=== PATIENT | female | born 1990 | race Two or more races ===

== ENCOUNTER 2024-07-11 17:58 | Emergency (ER) | payer MEDICAID, SELFPAY ==
[2024-07-11 18:13] VITALS: BP 126/85; PULSE 85; RESP 19; TEMP 36.5; O2SAT 100
[2024-07-11 18:33] VITALS: BMI 26.2
--- NOTE | 2024-07-11 18:38 | XR_ITS ---
Examination: OB Transvaginal ultrasound of the pelvis, complete Technique: Transvaginal sonographic images pelvis performed using overton scale imaging Exam date and time: July 11, 2024 1856 hrs. Indications: Vaginal bleeding beginning today, pelvic cramping beginning 6 days ago Findings: Uterus 9.4 x 5.0 x 7.0 cm pole 0.5 cm corresponds to 6 weeks 1 day gestational age No cardiac motion Right ovary 4.0 x 1.7 x 1.9 cm arterial flow small follicles Left ovary 3.4 x 2.0 x 2.6 cm arterial flow 15 mm cyst Impression: Intrauterine gestation corresponding to 6 weeks 1 day gestational age, no cardiac activity Recommend short-term follow-up transvaginal pelvic sonography to confirm viability.
--- NOTE | 2024-07-11 18:39 | PD.EDRME ---
Rapid Medical Screening Exam COUNTS INCLUDE 234 BEDS AT THE [facility] Arrival date/time: 07/11/24 17:58 33F at approximately 7 weeks and with no significant PMH presents to ED with several days of worsening vaginal bleeding/spotting and pelvic pain. Patient denies dysuria. Chief Complaint: Vaginal Bleeding Time Seen by Provider: 07/11/24 21:42 Vital signs: Vital Signs Temperature 97.7 F 07/11/24 18:13 Pulse Rate 85 07/11/24 18:13 Respiratory Rate 19 07/11/24 18:13 Blood Pressure 126/85 H 07/11/24 18:13 Pulse Oximetry (%) 100 07/11/24 18:13 Oxygen Delivery Method Room Air 07/11/24 18:13
[2024-07-11 19:17] LABS: Basophils % (Auto) 0 % (0-2.5); Eosinophils # (Auto) 0.1 Thou/mm3 (0.0-0.5); Eosinophils % (Auto) 1 % (0-10); Hematocrit 37.5 % (36.0-46.0); Hemoglobin 12.8 g/dL (12.0-16.0); Immature Granulocytes % (Auto) 0 % (0-0); Immature Granulocytes Auto 0.03 Thou/mm3 (0.00-0.00); Lymphocytes # (Auto) 2.2 Thou/mm3 (1.0-4.8); Lymphocytes % (Auto) 24 % (10-50); Mean Corpuscular HGB Conc 34.1 g/dl (31.0-37.0); Mean Corpuscular Hemoglobin 31.2 pg (25.0-35.0); Mean Corpuscular Volume 92 fL (80-100); Monocytes # (Auto) 0.6 Thou/mm3 (0.0-0.8); Monocytes % (Auto) 6 % (0-12); Neutrophils # (Auto) 6.2 Thou/mm3 (1.8-7.7); Neutrophils % (Auto) 68 % (37-80); Nucleated Red Blood Cell % 0 /100 WBC (0); Platelet Count 245 Thou/mm3 (140-440); RDW Standard Deviation 46.3 fL (36.4-46.3); White Blood Count 9.2 Thou/mm3 (3.6-11.0)
[2024-07-11 19:29] LABS: Alanine Aminotransferase 12 U/L (10-49); Albumin, Serum 4.6 gm/dL (3.5-5.0); Albumin/Globulin Ratio 1.5 (1.2-2.2); Alkaline Phosphatase 74 U/L (46-116); Anion Gap 7 (7-16); Aspartate Amino Transferase 15 U/L (0-34); BUN/Creatinine Ratio 9 Ratio (12-20); Bilirubin,Total 0.3 mg/dL (0.3-1.2); Blood Urea Nitrogen 6 mg/dL (9-23); Calcium 9.4 mg/dL (8.3-10.6); Calcium (Corrected) 9.4 mg/dL (8.5-10.1); Carbon Dioxide 23.7 mMol/L (20.0-31.0); Chloride 104 mMol/L (98-107); Creatinine (Component) 0.7 mg/dL (0.6-1.3); Estimated Creatinine Clearance 119.6 mL/min (>60); Globulin 3.1 gm/dL (2.3-3.5); Glucose 114 mg/dL (74-106); Osmolality,Calculated 268 (275-295); Potassium 3.3 mMol/L (3.4-5.1); Sodium 135 mMol/L (136-145); Total Protein 7.7 gm/dL (5.7-8.2); eGFR > 60 See Note
[2024-07-11 20:01] LABS: Collection Type, Urine Clean Catch
[2024-07-11 20:17] LABS: Beta HCG,Quantitative 49609 mIU/mL (<5.0)
[2024-07-11 20:22] LABS: Bilirubin,Urine Negative (Negative); Blood,Urine 2+ (Negative); Clarity,Urine Clear (Clear/Hazy); Color,Urine Colorless (Lt Yel-Yel); Glucose, Urine Negative (Negative); Ketones,Urine Negative (Negative); Leukocyte Esterase,Urine Negative (Negative); Nitrite,Urine Negative (Negative); Protein,Urine Negative (Neg - Trace); RBC,Urine 3 /hpf (0-3); Specific Gravity,Urine 1.007 (1.001-1.035); Squamous Epithelial Cell,Urine < 1 /hpf (0-5); Urobilinogen,Urine Negative mg/dL (0.0-1.0); WBC,Urine 1 /hpf (0-5)
--- NOTE | 2024-07-11 21:43 | PD.EDVAGBL ---
ED OB Contraction Preg RMI/HPI General Chief complaint: Vaginal Bleeding Stated complaint: Vaginal bleeding X 1 day Time Seen by Provider: 07/11/24 21:42 Arrival date/time: 07/11/24 17:58 33F at approximately 7 weeks and with no significant PMH presents to ED with several days of worsening vaginal bleeding/spotting and pelvic pain. Patient denies dysuria. Limitations: no limitations Related Data Allergies Allergy/AdvReac Type Severity Reaction Status Date / Time NKA* Allergy Uncoded 03/13/19 20:04 Review of Systems Review of Systems Systems Reviewed: All systems reviewed, normal except as documented Constitutional Constitutional: Reports system reviewed and no additional complaints, except as documented, Denies fever(s) and Denies headache(s) ENT Ears, Nose, Mouth, and Throat: Denies disequilibrium and Denies headache(s) Cardiovascular Cardiovascular: Reports system reviewed and no additional complaints, except as documented, Denies chest pain and Denies dyspnea Respiratory Respiratory: Reports system reviewed and no additional complaints, except as documented, Denies cough and Denies dyspnea Gastrointestinal Gastrointestinal: Reports system reviewed and no additional complaints, except as documented, Denies abdominal pain, Denies nausea and Denies vomiting Genitourinary Genitourinary: Reports as per HPI, Reports abnormal vaginal bleeding and Reports pelvic pain Neurologic Neurologic: Reports system reviewed and no additional complaints, except as documented, Denies confusion, Denies disequilibrium and Denies headache(s) Psychiatric Psychiatric: Denies confusion Past Medical History Past Medical History CARDIAC: Negative Congestive Heart Failure RESPIRATORY: Negative Chronic Obstructive Pulmonary Disease (COPD) GENITOURINARY: Negative Renal Disease ENDOCRINE: Negative Diabetes Mellitus Type 1 or Diabetes Mellitus Type 2 Social History SMOKING STATUS: Never smoker ED Exam General Limitations: Present no limitations General appearance: Present alert and in no apparent distress Head Head exam: Present atraumatic Eye Eye exam: Present normal appearance, PERRL and EOMI ENT ENT exam: Present normal exam, normal oropharynx and mucous membranes moist Neck Neck exam: Present normal inspection, full ROM and trachea midline Chest Chest inspection: Present normal inspection and symmetric chest wall rise Respiratory Respiratory exam: Present normal lung sounds bilaterally Cardiovascular Cardiovascular exam: Present regular rate, normal rhythm and normal heart sounds Abdominal Exam Abdominal exam: Present soft and normal bowel sounds Extremities Exam Extremities exam: Present normal inspection and full ROM Back Exam Back exam: Present normal inspection and full ROM Neurological Exam Neurological exam: Present alert, oriented X3 and CN II-XII intact Psychiatric Psychiatric exam: Present normal affect and normal mood Skin Skin exam: Present warm, dry, intact and normal color Course Quality Measures none Orders Category Date Time Status US OB transvaginal Stat Exams 07/11/24 18:38 Completed ABO/RH Type Stat Lab 07/11/24 18:46 Completed Beta HCG,Quantitative Stat Lab 07/11/24 18:46 Completed CBC Stat Lab 07/11/24 18:46 Completed CMP [Comprehensive Metabolic Panel] Stat Lab 07/11/24 18:46 Completed UA [Urinalysis] Stat Lab 07/11/24 19:48 Completed Urine Culture Stat Lab 07/11/24 19:48 Received Potassium Chloride [K-Dur] Med 07/11/24 21:43 Discontinued 40 meq PO X1 ONE Vital Signs Vital signs: Vital Signs Temperature 97.7 F 07/11/24 18:13 Pulse Rate 85 07/11/24 18:13 Respiratory Rate 19 07/11/24 18:13 Blood Pressure 126/85 H 07/11/24 18:13 Pulse Oximetry (%) 100 07/11/24 18:13 Oxygen Delivery Method Room Air 07/11/24 18:13 O2 at 100% on RA and WNLs Vaginal Bleeding MDM Narrative MDM Narrative: 33F at approximately 7 weeks and with no significant PMH presents to ED with several days of worsening vaginal bleeding/spotting and pelvic pain. Patient denies dysuria. Physical exam reveals no pelvic tenderness. Patient is afebrile, calm, and alert. US reveals no IUP. Beta HCG around 50k. UA clean. Mild hypokalemia, repleted. No leukocytosis. No anemia. Counseeld to follow-up with OBGYN for repeat HCG in about 48-72 hours. Patient data External records reviewed:: [facility] previous records Clinical information provided by:: patient Social determinants that could affect healthcare access:: none Patient has the following chronic illnesses:: none How is presenting disease/condition affected by chronic disease/condition?: no chronic disease Evaluation data The following diagnostics were reviewed and interpreted by me:: lab results and radiology exam(s) Lab and/or radiology exams considered but not ordered:: ordered Interpretation Summary: above Medications / Prescriptions Medications or Prescriptions considered but not ordered:: not ordered Medication administrations:: Medication Administration History Discontinued Medications Potassium Chloride (Potassium Chloride 20 Meq Tabcr) 40 meq PO X1 ONE Stop: 07/11/24 21:44 n/a Consultations Consultation(s) initiated? (list below): No Diagnosis Vaginal Bleeding Differential Diagnosis: missed , threatened , dysfunctional uterine bleeding, menometrorrhagia, incomplete , ectopic without intrauterine and vaginal bleeding Most likely diagnosis given after review of the tests above:: vaginal bleeding Admission Indicated Admission indicated?: not indicated Admission Request Was there a request for admission?: No Disposition Plan Disposition Plan: Discharge Discharge Attestation Discharge Attestation: The patient and all family members were given an opportunity to ask questions and understood the discharge instructions. Discharge instructions specifically effects, indications for sooner follow up or return to the emergency department, and the expected course of current diagnosis. Patient condition: Stable Discharge Plan Plan Patient Disposition: HOME (Self Care) Disposition Comment: Stable Prescriptions/Referrals Referrals: Jose Armando Coello MD [Primary Care Provider] - In 1 week Problem List Clinical Impression: Vaginal bleeding Patient/Caregiver Discharge Instructions Additional Instructions: Please follow-up with PCP/OBGYN within 24-48 hours and return immediately if symptoms worsen. Recommend repeat HCG in about 48-72 to see trend. Print Language: Turkish Stand Alone Forms: Patient Portal Info Letter LORRAINE/MICHA Supervising Physician LORRAINE/MICHA Supervising Physician: Dr. Simms
[2024-07-11] MEDS: POTASSIUM CHLORIDE 20 mEq TABCR 40 MEQ PO (21:54)
[2024-07-11 21:55] VITALS: BP 122/76; PULSE 80; RESP 18; TEMP 36.7; O2SAT 98
== END 2024-07-11 21:56 | disposition home or self-care (01) ==
PROVIDERS: Physician Assistant; Emergency Provider Emergency Medicine; PCP Obstetrics & Gynecology
DX: O20.9 Hemorrhage in early pregnancy, unspecified (principal); Z3A.01 Less than 8 weeks gestation of pregnancy
CPT/HCPCS: 36415; 76817; 80053; 81001; 84702; 85025; 86900; 86901; 87086; 99284; A9270